=== PATIENT | male | born 1990 | race African-American/Black ===

== ENCOUNTER 2020-02-24 20:55 | Emergency (ER) | payer SELFPAY ==
[~2020-02-24] VITALS: Ht 182.9 cm; Wt 95.5 kg
[2020-02-24 21:34] LABS: BASO # 0.1 x10^3/uL (0.0-0.2); BASO % 1 % (0-3); EOS # 0.2 x10^3/uL (0.0-0.7); EOS % 3 % (0-3); HEMATOCRIT 43.6 % (39.0-53.0); HEMOGLOBIN 14.6 g/dL (13.0-17.5); LYMPH # 1.2 x10^3/uL (1.0-4.8); LYMPH % 16 % (24-48); MEAN CORPUSCULAR HEMOGLOBIN 30 pg (25-35); MEAN CORPUSCULAR HGB CONC 34 g/dL (31-37); MEAN CORPUSCULAR VOLUME 90 fL (79-100); MONO # 0.9 x10^3/uL (0.0-1.1); MONO % 12 % (0-9); NEUT # 5.2 x10^3/uL (1.8-7.7); NEUT % 68 % (31-73); PLATELET COUNT 194 x10^3/uL (140-400); RED BLOOD COUNT 4.88 x10^6/uL (4.30-5.70); RED CELL DISTRIBUTION WIDTH 14.3 % (11.5-14.5); WHITE BLOOD COUNT 7.6 x10^3/uL (4.0-11.0)
--- NOTE | 2020-02-24 21:49 | RAD ---
TIBIA FIBULA RIGHT, KNEE RIGHT 3V, ANKLE RIGHT 3V Clinical Indication: Mechanical fall, pain. Comparison: None. Findings: No acute fracture of the tibia or fibula. No soft tissue swelling of the calf. No radiopaque foreign body is seen. No acute fracture of the ankle. Ankle mortise is intact. There is mild lateral ankle soft tissue swelling. Well-corticated accessory ossicle at the tip of the lateral malleolus. Patella in anatomic position. There is no knee joint effusion. There is a 6 mm loose joint body. No acute fracture of the knee. IMPRESSION: 1. No acute fracture. 2. Mild lateral ankle soft tissue swelling. 3. Small loose joint body of the knee. Electronically signed by: Juanjo Solis MD (02/24/2020 9:45 PM) [id number]
[2020-02-24] MEDS ORDERED: IV NORMAL SALINE 500ML BAG 500 ML IV SCH (22:00)
[2020-02-24] MEDS ORDERED: DICL50TA4 PO (22:02)
--- NOTE | 2020-02-24 22:02 | PHYS DOC ---
Past Medical History Past Medical History: No Pertinent History Past Surgical History: No Surgical History Smoking Status: Current Every Day Smoker Alcohol Use: Rarely General Adult EDM: Chief Complaint: LOWER EXT PAIN HPI: HPI: Patient is a 29 year old male who presents with report of right knee and ankle pain after collapsing due to having a syncopal episode. Patient rates his pain in his knee and his ankle at a 10 out of 10. He states that he is not able to bear any weight but does admit that he was able to ambulate after the injury. Patient states that he guesses he must have panicked while wearing a mask because he was standing in line. He denies any chest pain or shortness of breath. [] Review of Systems: Review of Systems: Constitutional: Denies fever or chills. [] Respiratory: Denies cough or shortness of breath. [] Cardiovascular: Denies chest pain or edema. [] GI: Denies abdominal pain, nausea, vomiting, bloody stools or diarrhea. [] Musculoskeletal: Complains of right knee and ankle pain. [] Integument: Denies rash. [] Neurologic: Denies headache, focal weakness or sensory changes. [] A full 10 point review of systems has been reviewed and is otherwise negative. Heart Score: Risk Factors: Risk Factors: DM, Current or recent (<one month) smoker, HTN, HLP, family history of CAD, obesity. Risk Scores: Score 0 - 3: 2.5% MACE over next 6 weeks - Discharge Home Score 4 - 6: 20.3% MACE over next 6 weeks - Admit for Clinical Observation Score 7 - 10: 72.7% MACE over next 6 weeks - Early Invasive Strategies Current Medications: Current Medications Medications (Trade) Dose Ordered Sig/[facility] Start Time Stop Time Status Last Admin Dose Admin Sodium Chloride 500 ml @ 500 mls/hr Q1H 02/24/20 22:00 Allergies: Allergies: Allergies Coded Allergies Type Severity Reaction Last Updated Verified No Known Drug Allergies 02/24/20 No Physical Exam: PE: Constitutional: Well developed, well nourished, no acute distress, non-toxic appearance. [] HENT: Normocephalic, atraumatic, bilateral external ears normal, oropharynx moist, no oral exudates, nose normal. [] Eyes: PERRLA, EOMI, conjunctiva normal, no discharge. [] Neck: Normal range of motion, no tenderness, supple, no stridor. [] Cardiovascular: Regular rate and rhythm [] Lungs & Thorax: Bilateral breath sounds clear to auscultation [] Abdomen: Bowel sounds normal, soft, no tenderness. [] Skin: Warm, dry, no erythema, no rash. [] Extremities: Patient complains of diffuse knee and ankle tenderness on palpation. Range of motion is limited due to reported pain. No external signs of trauma are noted on exam however. [] Neurologic: Alert and oriented X 3, no focal deficits noted. [] Current Patient Data: Labs: Laboratory Tests Test 02/24/20 21:20 White Blood Count 7.6 x10^3/uL (4.0-11.0) Red Blood Count 4.88 x10^6/uL (4.30-5.70) Hemoglobin 14.6 g/dL (13.0-17.5) Hematocrit 43.6 % (39.0-53.0) Mean Corpuscular Volume 90 fL (79-100) Mean Corpuscular Hemoglobin 30 pg (25-35) Mean Corpuscular Hemoglobin Concent 34 g/dL (31-37) Red Cell Distribution Width 14.3 % (11.5-14.5) Platelet Count 194 x10^3/uL (140-400) Neutrophils (%) (Auto) 68 % (31-73) Lymphocytes (%) (Auto) 16 % (24-48) L Monocytes (%) (Auto) 12 % (0-9) H Eosinophils (%) (Auto) 3 % (0-3) Basophils (%) (Auto) 1 % (0-3) Neutrophils # (Auto) 5.2 x10^3/uL (1.8-7.7) Lymphocytes # (Auto) 1.2 x10^3/uL (1.0-4.8) Monocytes # (Auto) 0.9 x10^3/uL (0.0-1.1) Eosinophils # (Auto) 0.2 x10^3/uL (0.0-0.7) Basophils # (Auto) 0.1 x10^3/uL (0.0-0.2) Laboratory Tests 02/24/20 21:20 Vital Signs: Vital Signs Date Time Temp Pulse Resp B/P (MAP) Pulse Ox O2 Delivery O2 Flow Rate FiO2 02/24/20 21:10 98.2 92 14 142/87 (105) 98 Room Air 98.2 EKG: EKG: [] Radiology/Procedures: Radiology/Procedures: [] Impression: ROCEDURE: ANKLE RIGHT 3V TIBIA FIBULA RIGHT, KNEE RIGHT 3V, ANKLE RIGHT 3V Clinical Indication: Mechanical fall, pain. Comparison: None. Findings: No acute fracture of the tibia or fibula. No soft tissue swelling of the calf. No radiopaque foreign body is seen. No acute fracture of the ankle. Ankle mortise is intact. There is mild lateral ankle soft tissue swelling. Well-corticated accessory ossicle at the tip of the lateral malleolus. Patella in anatomic position. There is no knee joint effusion. There is a 6 mm loose joint body. No acute fracture of the knee. IMPRESSION: 1. No acute fracture. 2. Mild lateral ankle soft tissue swelling. 3. Small loose joint body of the knee. Electronically signed by: Juanjo Solis MD (02/24/2020 9:45 PM) [id number] Course & Med Decision Making: Course & Med Decision Making Pertinent Labs and Imaging studies reviewed. (See chart for details) [] Dragon Disclaimer: Dragon Disclaimer: This electronic medical record was generated, in whole or in part, using a voice recognition dictation system. Departure Departure Impression: Primary Impression: Syncope Qualified Codes: R55 - Syncope and collapse Additional Impressions: Right knee sprain Qualified Codes: S83.91XA - Sprain of unspecified site of right knee, initial encounter Right ankle sprain Qualified Codes: S93.401A - Sprain of unspecified ligament of right ankle, initial encounter Disposition: HOME, SELF-CARE Condition: STABLE Patient Instructions: Ankle Sprain, Knee Sprain, Syncope Scripts Diclofenac Sodium (DICLOFENAC SODIUM) 50 Mg Tablet. 1 TAB PO BID PRN for PAIN, #20 TAB Prov: TEETEE DE LA ROSA Jr. DO 02/24/20 TEETEE DE LA ROSA Jr. DO February 24, 2020 22:02
[2020-02-24 22:21] LABS: CALCIUM 8.6 mg/dL (8.5-10.1); CREATININE 0.8 mg/dL (0.7-1.3); GFR 136.4; POTASSIUM 4.6 mmol/L (3.5-5.1)
[2020-02-24 22:27] LABS: ALBUMIN 3.7 g/dL (3.4-5.0); ALBUMIN/GLOBULIN RATIO 1.1 (1.0-1.7); TOTAL BILIRUBIN 0.1 mg/dL (0.2-1.0)
[2020-02-24] MEDS ORDERED: IBUPROFEN 400 MG TABLET. PO ONE (22:30)
[2020-02-24 22:59] VITALS: BP 127/73
--- NOTE | 2020-02-24 23:46 | RAD ---
EXAM: Right knee, 3 views HISTORY: Right knee pain after injury. FINDINGS: A small ossicle along the lateral aspect of the lateral tibial plateau suggests a Segond fracture. An ossicle along the medial tibial spine may reflect an avulsion associated with the anterior cruciate ligament insertion. Joint spaces are maintained. Alignment is normal. There is no joint effusion. IMPRESSION: 1. A Segond fracture is suspected. If the injury is acute, this predicts other internal derangement such as an anterior cruciate ligament tear. MRI could further evaluate if the diagnosis is unclear. Electronically signed by: Pearl Hines MD (02/24/2020 11:43 PM) [facility]
--- NOTE | 2020-02-25 05:42 | EKG ---
[facility] [address] [place] [address] Test Date: 2020-02-24 Test Time: 21:14:59 Pat Name: COSME IGLESIAS Department: Room: Gender: M [employer]: : 1990 Requested By: TEETEE DE LA ROSA Order Number: [id number] Reading MD: Wilbur Denise MD Measurements Intervals [place] Rate: 89 P: 40 VA: 174 QRS: 42 QRSD: 94 T: 31 QT: 330 QTc: 407 Interpretive Statements SINUS RHYTHM Electronically Signed On 02-26-2020 11:50:20 CDT by Wilbur Denise MD
== END 2020-02-25 00:04 | disposition home or self-care (01) ==
LOC: ER 20:55
DX: S83.91XA Sprain of unspecified site of right knee, initial encounter (principal); S93.401A Sprain of unspecified ligament of right ankle, initial encounter; R55 Syncope and collapse; F17.200 Nicotine dependence, unspecified, uncomplicated; W18.39XA Other fall on same level, initial encounter; Y93.89 Activity, other specified; Y92.89 Other specified places as the place of occurrence of the external cause; Y99.8 Other external cause status
CPT/HCPCS: 29505; 36415; 73562; 73590; 73610; 80053; 83735; 85025; 93005; 99285-25